=== PATIENT | female | born 1995 | race Two or more races ===

== ENCOUNTER 2025-02-23 22:33 | Emergency (ER) | payer OTHER, SELFPAY ==
[2025-02-23 22:34] VITALS: BP 109/76; PULSE 77; RESP 18; TEMP 36.9; O2SAT 98; BMI 23.8
--- NOTE | 2025-02-23 23:21 | PD.EDRME ---
Rapid Medical Screening Exam RME Arrival date/time: 02/23/25 22:33 29 yo f present to Ed for c/o of n/v + 10 weeks I have greeted and performed a focused initial assessment of this patient. A comprehensive ED assessment and evaluation of the patient, analysis of all test results, and completion of the medical decision making process will be conducted by additional ED providers. Chief Complaint: Nausea/Vomiting/Diarrhea Time Seen by Provider: 02/23/25 22:36 Vital signs: Vital Signs Temperature 98.4 F 02/23/25 22:34 Pulse Rate 77 02/23/25 22:34 Respiratory Rate 18 02/23/25 22:34 Blood Pressure 109/76 02/23/25 22:34 Pulse Oximetry (%) 98 02/23/25 22:34 Oxygen Delivery Method Room Air 02/23/25 22:34
[2025-02-23 23:45] LABS: Basophils % (Auto) 0 % (0-2.5); Eosinophils # (Auto) 0.1 Thou/mm3 (0.0-0.5); Eosinophils % (Auto) 1 % (0-10); Hematocrit 34.6 % (36.0-46.0); Hemoglobin 12.4 g/dL (12.0-16.0); Immature Granulocytes % (Auto) 0 % (0-0); Immature Granulocytes Auto 0.03 Thou/mm3 (0.00-0.00); Lymphocytes # (Auto) 2.7 Thou/mm3 (1.0-4.8); Lymphocytes % (Auto) 23 % (10-50); Mean Corpuscular HGB Conc 35.8 g/dl (31.0-37.0); Mean Corpuscular Hemoglobin 31.6 pg (25.0-35.0); Mean Corpuscular Volume 88 fL (80-100); Monocytes # (Auto) 0.6 Thou/mm3 (0.0-0.8); Monocytes % (Auto) 5 % (0-12); Neutrophils # (Auto) 8.3 Thou/mm3 (1.8-7.7); Neutrophils % (Auto) 70 % (37-80); Nucleated Red Blood Cell % 0 /100 WBC (0); Platelet Count 244 Thou/mm3 (140-440); RDW Standard Deviation 37.2 fL (36.4-46.3); Red Blood Count 3.92 Miln/mm3 (4.00-5.20); White Blood Count 11.9 Thou/mm3 (3.6-11.0)
--- NOTE | 2025-02-24 00:05 | XR_ITS ---
Examination: Complete OB ultrasound, less than 14 weeks, transabdominal Date and time of exam: February 24, 2025 1300 hours INDICATIONS: Pelvic cramping and pain today, recent positive test Technique: Obstetrical ultrasound images less than 14 weeks performed via transabdominal imaging Findings: A normal shaped single intrauterine gestation is present in the uterus. pole to 0.67 cm corresponds to 19 weeks 3 days gestational age Cardiac motion 180 BPM Ultrasonographic survey of visible and placental structures unremarkable. Amniotic fluid volume appears appropriate for this estimated gestational age. Right ovary obscured by bowel gas Left ovary 3.1 cm arterial flow IMPRESSION: Viable intrauterine gestation 9 weeks 3 days.
[2025-02-24 00:08] LABS: Alanine Aminotransferase 31 U/L (10-49); Albumin, Serum 4.4 gm/dL (3.5-5.0); Albumin/Globulin Ratio 1.6 (1.2-2.2); Alkaline Phosphatase 44 U/L (46-116); Anion Gap 8 (7-16); Aspartate Amino Transferase 23 U/L (0-34); BUN/Creatinine Ratio 13 Ratio (12-20); Bilirubin,Total 0.8 mg/dL (0.3-1.2); Blood Urea Nitrogen 9 mg/dL (9-23); Carbon Dioxide 23.9 mMol/L (20.0-31.0); Chloride 106 mMol/L (98-107); Creatinine (Component) 0.7 mg/dL (0.6-1.3); Estimated Creatinine Clearance 93.8 mL/min (>60); Globulin 2.8 gm/dL (2.3-3.5); Glucose 95 mg/dL (74-106); Osmolality,Calculated 274 (275-295); Potassium 3.6 mMol/L (3.4-5.1); Sodium 138 mMol/L (136-145); Total Protein 7.2 gm/dL (5.7-8.2); eGFR > 60 See Note
[2025-02-24 00:45] LABS: Collection Type, Urine Voided
[2025-02-24 00:49] LABS: Beta HCG,Quantitative 118437 mIU/mL (<5.0)
[2025-02-24 01:03] LABS: Amorphous Crystals,Urine Present (Absent); Bacteria,Urine 1+; Bilirubin,Urine Negative (Negative); Blood,Urine Negative (Negative); Clarity,Urine Clear (Clear/Hazy); Color,Urine Yellow (Lt Yel-Yel); Glucose, Urine Negative (Negative); Ketones,Urine Trace (Negative); Leukocyte Esterase,Urine Positive (Negative); Nitrite,Urine Negative (Negative); Protein,Urine 1+ (Neg - Trace); RBC,Urine 1 /hpf (0-3); Specific Gravity,Urine 1.036 (1.001-1.035); Squamous Epithelial Cell,Urine 4 /hpf (0-5); WBC,Urine 2 /hpf (0-5)
--- NOTE | 2025-02-24 02:44 | PRELIM_ITS ---
Obstetric ultrasound (transabdominal). February 24, 2025 at 0100 hours Clinical history: Abdominal pain. Technique: Real-time ultrasound was performed using Duplex scanning including arterial inflow, venous outflow, color and spectral Doppler analysis of both ovaries. Comparison: No prior study is available for comparison. Findings: The uterus is 12.1 x 7.9 x 8.8 cm. Single live intrauterine gestation with heart rate of 180 bpm. Normal yolk sac. Right ovary is not identified. Left ovary is 3.1 x 1.9 x 2.4 cm and has normal arterial flow. A 1.7 cm left ovarian follicle. Ultrasound gestational age is 9 weeks 3 days. RAJNI 2024. Impression: Unremarkable intrauterine gestation. Nonvisualized right ovary. Report Electronically Signed By: Sharad Gasca 02/24/2025 2:44:05 AM [EST]
--- NOTE | 2025-02-24 03:12 | PD.EDPREG ---
ED OB Contraction Preg RMI/HPI General Chief complaint: Nausea/Vomiting/Diarrhea Stated complaint: LOWER ABD PAIN, NAUSEA. 10 WEEKS PREG Time Seen by Provider: 02/23/25 22:36 Arrival date/time: 02/23/25 22:33 RME / HPI RME / HPI Narrative: 02/23/25 22:33 29 yo f present to Ed for c/o of n/v + 10 weeks I have greeted and performed a focused initial assessment of this patient. A comprehensive ED assessment and evaluation of the patient, analysis of all test results, and completion of the medical decision making process will be conducted by additional ED providers. This section includes all my notes and documentations, including HPI, PE, and ED course. Mehdi Hahn MD HPI: 29-year-old female here with nausea and vomiting and left-sided lower abdominal pain for the past several days. She is currently , about 10 weeks. No fever. No vaginal spotting or bleeding. No other complaints. ROS: All negative except as documented in HPI. Physical Exam: General: Alert and oriented. No acute distress when remaining still. Eyes: Conjunctivae and lids clear. ENT: No nasal congestion. Neck: Supple. Heart: RRR. Lungs: No respiratory distress. Good air movement. No rhonchi, wheezing, rales. Abdomen: Soft and nontender. Normal bowel sounds. No distension. No rebound or guarding. Back: No CVA tenderness. Skin: Warm and dry. Neuro: Alert and oriented X 3. I reviewed all diagnostic test results. My review of the OB ultrasound report is IUP (GA 9 3/7 weeks). Blood tests and urine tests remarkable for UTI. At this point, diagnoses include UTI and first trimester . Treatment here included Macrobid and Zofran. Significant improvement noted. Recommended more outpatient care. Based on my best medical judgment, made decision no further evaluation or treatment indicated at this time. Patient understands and agrees to the discharge instructions customized and printed, see below. Discharge instructions from Dr. Hahn: 1. After evaluation, your baby is alive and doing well. Estimated gestational age is 9 3/7 weeks. But you have urinary tract infection. 2. Take Macrobid to kill the germs causing the infection.? Increase oral fluid to flush it out.? Maintain clear urine.? If dark or yellow, increase oral fluid. 3. Zofran for nausea/vomiting. Eat regular nutritious meals for you and the baby. 4. See a private doctor on 02/26/2025 for recheck.? Ask for help until you are completely better. 5. Seek immediate medical care with worsening, fever, or with any concerns. Mehdi Hahn MD Related Data Previous Rx's ?Medication ?Instructions ?Recorded nitrofurantoin 100 mg PO BID #14 caps 02/24/25 monohydrate/macrocrystals 100 mg capsule (Macrobid) ondansetron 4 mg disintegrating 4 mg PO TID PRN nausea and 02/24/25 tablet vomiting 30 days #10 tabs Allergies Allergy/AdvReac Type Severity Reaction Status Date / Time No Known Allergies Allergy Verified 02/23/25 22:36 Course Quality Measures none Orders Category Date Time Status US OB <= 14 weeks fetus Stat Exams 02/24/25 00:05 Taken ABO/RH Type Stat Lab 02/23/25 23:38 Completed Beta HCG,Quantitative Stat Lab 02/23/25 23:38 Completed CBC Stat Lab 02/23/25 23:38 Completed CMP [Comprehensive Metabolic Panel] Stat Lab 02/23/25 23:38 Completed UA [Urinalysis] Stat Lab 02/24/25 00:25 Completed Nitrofurantoin Macro [Macrobid] Med 02/24/25 03:04 Discontinued 100 mg PO X1 ONE Ondansetron Odt [Zofran Odt] Med 02/24/25 03:04 Discontinued 4 mg PO X1 ONE Vital Signs Vital signs: Vital Signs Temperature 98.4 F 02/23/25 22:34 Pulse Rate 77 02/23/25 22:34 Respiratory Rate 18 02/23/25 22:34 Blood Pressure 109/76 02/23/25 22:34 Pulse Oximetry (%) 98 02/23/25 22:34 Oxygen Delivery Method Room Air 02/23/25 22:34 OB/Uterine Contractions Patient data External records reviewed:: None Clinical information provided by:: patient Social determinants that could affect healthcare access:: none Patient has the following chronic illnesses:: None How is presenting disease/condition affected by chronic disease/condition?: no chronic disease Evaluation data The following diagnostics were reviewed and interpreted by me:: lab results and radiology exam(s) Lab and/or radiology exams considered but not ordered:: None Interpretation Summary: First trimester and UTI Medications / Prescriptions Medications or Prescriptions considered but not ordered:: None Medication administrations:: Medication Administration History Discontinued Medications Nitrofurantoin Macrocrystals (Nitrofurantoin Macro 100 Mg Capsule) 100 mg PO X1 ONE Stop: 02/24/25 03:05 Ondansetron HCl (Ondansetron Odt 4 Mg Tabrap) 4 mg PO X1 ONE; Protocol Stop: 02/24/25 03:05 Macrobid and Zofran Consultations Consultation(s) initiated? (list below): No Diagnosis OB Contractions Differential Diagnosis: other (Ectopic, IUP, threatened AB, incomplete AB, UTI, hyperemesis gravidarum) Most likely diagnosis given after review of the tests above:: First trimester and UTI Admission Indicated Admission indicated?: not indicated Explain why admission is indicated or not indicated:: With significant improvement, there was no indication for admission. Admission Request Was there a request for admission?: No Disposition Plan Disposition Plan: Discharge Discharge Attestation Discharge Attestation: The patient and all family members were given an opportunity to ask questions and understood the discharge instructions. Discharge instructions specifically effects, indications for sooner follow up or return to the emergency department, and the expected course of current diagnosis. Patient condition: Stable Discharge Plan Plan Patient Disposition: HOME (Self Care) Prescriptions/Referrals Prescriptions/Med Rec: New ondansetron 4 mg tablet,disintegrating 4 mg PO TID PRN (Reason: nausea and vomiting) 30 Days Qty: 10 0RF nitrofurantoin monohyd/m-cryst [Macrobid] 100 mg capsule 100 mg PO BID Qty: 14 0RF Rx Instructions: must administer with a meal/food Referrals: No Primary/Family,Physician [Primary Care Provider] - In 1 week Problem List Clinical Impression: UTI (urinary tract infection), First trimester Patient/Caregiver Discharge Instructions Discharge Activity: activity as tolerated Education Materials: ED Hyperemesis Gravidarum, ED CYSTITIS Female Adult Additional Instructions: Discharge instructions from Dr. Hahn: 1. After evaluation, your baby is alive and doing well. Estimated gestational age is 9 3/7 weeks. But you have urinary tract infection. 2. Take Macrobid to kill the germs causing the infection.? Increase oral fluid to flush it out.? Maintain clear urine.? If dark or yellow, increase oral fluid. 3. Zofran for nausea/vomiting. Eat regular nutritious meals for you and the baby. 4. See a private doctor on 02/26/2025 for recheck.? Ask for help until you are completely better. 5. Seek immediate medical care with worsening, fever, or with any concerns. Print Language: Maori Stand Alone Forms: Gina Award Info., Patient Portal Info Letter
[2025-02-24] MEDS: ONDANSETRON ODT 4 MG TABRAP PO (03:28)
[2025-02-24] MEDS: NITROFURANTOIN MACRO 100 MG CAPSULE PO (03:28)
[2025-02-24 03:30] VITALS: BP 124/62; PULSE 78; RESP 19; TEMP 36.6; O2SAT 99
== END 2025-02-24 03:30 | disposition home or self-care (01) ==
PROVIDERS: Physician Assistant; Emergency Provider Emergency Medicine
DX: O23.41 Unspecified infection of urinary tract in pregnancy, first trimester (principal); Z3A.09 9 weeks gestation of pregnancy
CPT/HCPCS: 36415; 76801; 80053; 81001; 84702; 85025; 86900; 86901; 99284; Q0162; A9270

== ENCOUNTER 2025-07-02 19:21 | Observation (INO) | payer OTHER, SELFPAY ==
[2025-07-02] VITALS (26 sets, daily range): BP systolic 82–111; BP diastolic 49–62; PULSE 79–97; RESP 18–98; TEMP 36.7; O2SAT 93–99; BMI 26.8
--- NOTE | 2025-07-02 20:06 | XR_ITS ---
Examination: OB Transvaginal ultrasound of the pelvis, Limited Technique: Transvaginal sonographic images pelvis performed using parish scale imaging Exam date and time: July 02, 20252035 hrs. Indications: Pelvic pain and decreased movement today, unknown cervical length Findings: Cervix 4.8 cm closed Impression: Cervix 4.8 cm.
[2025-07-02 20:21] LABS: Collection Type, Urine Clean Catch
[2025-07-02 20:42] LABS: Bilirubin,Urine Negative (Negative); Blood,Urine Negative (Negative); Clarity,Urine Clear (Clear/Hazy); Color,Urine Lt-Yellow (Lt Yel-Yel); Glucose, Urine Negative (Negative); Ketones,Urine Negative (Negative); Leukocyte Esterase,Urine Positive (Negative); Nitrite,Urine Negative (Negative); PH,Urine 6.0 (5.0-7.0); Protein,Urine Negative (Neg - Trace); RBC,Urine 1 /hpf (0-3); Specific Gravity,Urine 1.009 (1.001-1.035); Squamous Epithelial Cell,Urine 5 /hpf (0-5); Urobilinogen,Urine Negative mg/dL (0.0-1.0); WBC,Urine 2 /hpf (0-5)
== END 2025-07-02 21:45 | disposition home or self-care (01) ==
PROVIDERS: Admitting Provider Obstetrics & Gynecology; Referring Provider Obstetrics & Gynecology; Visit Provider Obstetrics & Gynecology
DX: Z34.83 Encounter for supervision of other normal pregnancy, third trimester (principal); Z3A.28 28 weeks gestation of pregnancy
CPT/HCPCS: 59025; 59899; 76817; 81001